=== PATIENT | male | born 1965 | race Caucasian/White ===

== ENCOUNTER 2018-04-28 15:20 | Emergency (ER) | payer MEDICAID ==
[~2018-04-28] VITALS: Ht 162.6 cm; Wt 77.1 kg
[~2018-04-28 15:20] MED LIST: BENTYL20 MG PO; CELEXA 20 MG TA20 M1 PO; CIPRO250 M1 PO; CONSTULOSE10 GM/152 PO; FLAGYL500 MG PO; HYDROCODONE-AP1 EAC6 PO; HYDROXYZINE PAM25 M1 PO; ONDANSETRON HCL4 M2 PO; PERCOCET 5-3251 EACH PO; PRILOSEC 20 MG20 MG PO; SULFACETAMIDE 115 M1 OP; TRAMADOL 50 MG50 MG PO; ZOFRAN ODT4 MG PO
[2018-04-28] MEDS ORDERED: FLEXERIL PO (17:46)
[2018-04-28] MEDS ORDERED: NAPROSYN500 MG PO (17:46)
[2018-04-28 17:54] VITALS: BP 99/61
== END 2018-04-28 17:54 | disposition home or self-care (01) ==
LOC: M.ERS 15:20
DX: M54.5 Low back pain (principal); K74.60 Unspecified cirrhosis of liver; Z86.2 Personal history of diseases of the blood and blood-forming organs and certain disorders involving the immune mechanism; Z86.718 Personal history of other venous thrombosis and embolism

== ENCOUNTER 2018-07-29 16:39 | Emergency (ER) | payer MEDICAID ==
[~2018-07-29] VITALS: Ht 177.8 cm; Wt 77.1 kg
[~2018-07-29 16:39] MED LIST changes: +FLEXERIL PO; +NAPROSYN500 MG PO
[2018-07-29] MEDS ORDERED: KEFLEX500 M1 PO (18:26)
[2018-07-29] MEDS ORDERED: TRAMADOL 50 MG50 MG PO (18:31)
[2018-07-29 18:43] VITALS: BP 139/74
== END 2018-07-29 18:44 | disposition home or self-care (01) ==
LOC: M.ERS 16:39
DX: S21.132A Puncture wound without foreign body of left front wall of thorax without penetration into thoracic cavity, initial encounter (principal); L08.9 Local infection of the skin and subcutaneous tissue, unspecified; K74.60 Unspecified cirrhosis of liver; Z86.19 Personal history of other infectious and parasitic diseases; Z86.2 Personal history of diseases of the blood and blood-forming organs and certain disorders involving the immune mechanism; Z87.01 Personal history of pneumonia (recurrent); W20.8XXA Other cause of strike by thrown, projected or falling object, initial encounter; Y93.89 Activity, other specified; Y92.89 Other specified places as the place of occurrence of the external cause; Y99.8 Other external cause status

== ENCOUNTER 2018-12-04 11:19 | Emergency (ER) | payer MEDICAID ==
[~2018-12-04] VITALS: Ht 157.5 cm; Wt 72.6 kg
[~2018-12-04 11:19] MED LIST changes: +KEFLEX500 M1 PO
[2018-12-04] MEDS ORDERED: NORCO 5-325 TA1 EAC1 PO (11:43)
[2018-12-04] MEDS ORDERED: PENICILLIN VK500 MG PO (11:43)
[2018-12-04 11:58] VITALS: BP 125/74
== END 2018-12-04 11:59 | disposition home or self-care (01) ==
LOC: M.ERS 11:19
DX: K02.9 Dental caries, unspecified (principal); K74.60 Unspecified cirrhosis of liver; Z86.2 Personal history of diseases of the blood and blood-forming organs and certain disorders involving the immune mechanism; Z86.718 Personal history of other venous thrombosis and embolism

== ENCOUNTER 2019-04-30 22:12 | Emergency (ER) | payer OTHER ==
[~2019-04-30] VITALS: Ht 157.5 cm; Wt 70.3 kg
[~2019-04-30 22:12] MED LIST changes: +NORCO 5-325 TA1 EAC1 PO; +PENICILLIN VK500 MG PO
[2019-04-30] MEDS ORDERED: NEOMYC-POLYM-D3.5 GM INTRAOCULR (22:49)
[2019-04-30] MEDS ORDERED: PREDNISONE50 MG PO (22:49)
[2019-04-30 23:01] VITALS: BP 137/66
== END 2019-04-30 23:02 | disposition home or self-care (01) ==
LOC: M.ERS 22:12
DX: H11.31 Conjunctival hemorrhage, right eye (principal); L25.9 Unspecified contact dermatitis, unspecified cause; K74.60 Unspecified cirrhosis of liver; Z86.19 Personal history of other infectious and parasitic diseases; Z86.718 Personal history of other venous thrombosis and embolism; Z86.2 Personal history of diseases of the blood and blood-forming organs and certain disorders involving the immune mechanism

== ENCOUNTER 2019-05-07 11:24 | Emergency (ER) | payer OTHER ==
[~2019-05-07] VITALS: Ht 157.5 cm; Wt 72.6 kg
[~2019-05-07 11:24] MED LIST changes: +NEOMYC-POLYM-D3.5 GM INTRAOCULR; +PREDNISONE50 MG PO
[2019-05-07] MEDS ORDERED: TRIAMCINOLONE A80 G2 TOP (11:43)
[2019-05-07 11:54] VITALS: BP 118/62
== END 2019-05-07 11:54 | disposition home or self-care (01) ==
LOC: M.ERS 11:24
DX: L25.9 Unspecified contact dermatitis, unspecified cause (principal); K74.60 Unspecified cirrhosis of liver; Z86.2 Personal history of diseases of the blood and blood-forming organs and certain disorders involving the immune mechanism; Z86.718 Personal history of other venous thrombosis and embolism

== ENCOUNTER 2020-05-04 19:59 | Emergency (ER) | payer MEDICAID ==
[~2020-05-04] VITALS: Ht 157.5 cm; Wt 83.9 kg
[~2020-05-04 19:59] MED LIST changes: +TRIAMCINOLONE A80 G2 TOP
[2020-05-04 22:51] LABS: ABSOLUTE EOSINOPHILS 0.1 thou/uL (0.0-0.7); ABSOLUTE LYMPHOCYTES 0.9 thou/uL (0.8-5.3); ABSOLUTE MONOCYTES 0.5 thou/uL (0.0-1.2); ABSOLUTE NEUTROPHILS 2.4 thou/uL (1.6-8.1); BASOPHILS 0.8 %; EOSINOPHILS 3.4 %; HEMATOCRIT 41.6 % (42.0-52.0); HEMOGLOBIN 14.4 gm/dL (14.0-18.0); LYMPHOCYTES 22.1 %; MCH 34.3 pg (26.0-34.0); MCHC 34.7 g/dL (28.0-37.0); MCV 98.9 fL (80.0-100.0); MONOCYTES 12.8 %; MPV 10.8 fl. (7.2-11.1); NUCLEATED RBCS 0 /100WBC; PLATELET COUNT* 56 thou/uL (150-400); POLYS 60.9 %; RBC 4.21 mil/uL (4.50-6.00); RDW-CV 13.9 % (10.5-14.5); WBC 3.9 thou/uL (4.0-11.0)
[2020-05-04 22:54] LABS: CALCIUM 7.8 mg/dL (8.5-10.1); CREATININE 0.8 mg/dL (0.6-1.3)
[2020-05-04 22:59] LABS: ALBUMIN 2.8 g/dL (3.4-5.0); TOTAL BILIRUBIN 1.3 mg/dL (<0.1-1.0); TOTAL PROTEIN 6.7 g/dL (6.4-8.2)
[2020-05-05] MEDS ORDERED: ROXICODONE5 M2 PO (01:22)
[2020-05-05] MEDS ORDERED: FLAGYL500 M1 PO (01:22)
[2020-05-05] MEDS ORDERED: ZOFRAN ODT4 MG PO (01:22)
[2020-05-05] MEDS ORDERED: CIPROFLOXACIN500 M1 PO (01:22)
[2020-05-05 02:35] VITALS: BP 112/52
== END 2020-05-05 02:35 | disposition home or self-care (01) ==
LOC: M.ERS 19:59
PROVIDERS: Emergency Medicine
DX: K52.9 Noninfective gastroenteritis and colitis, unspecified (principal); K74.60 Unspecified cirrhosis of liver; Z86.2 Personal history of diseases of the blood and blood-forming organs and certain disorders involving the immune mechanism; Z86.718 Personal history of other venous thrombosis and embolism